=== PATIENT | female | born 1955 | race Caucasian/White ===

== ENCOUNTER 2024-01-23 15:42 | Emergency (ER) | payer BC, MEDICARE, SELFPAY ==
[2024-01-23 15:47] VITALS: BP 172/96; PULSE 71; RESP 16; TEMP 36.6; O2SAT 98
--- NOTE | 2024-01-23 15:54 | XR_ITS ---
Patient: YOHANA LUNDBERG Facility:?[facility] Patient ID:?[id number] Site Patient ID:?[id number]. Site :?[id number] Study:?XRay-Extremity Right FOOT-01/23/2024 4:21:29 PM Ordering Physician:?DR. WALSH Final Report: INDICATION: Trauma. TECHNIQUE: Right foot radiographs, 3 views. COMPARISON: None. FINDINGS: No acute fractures or dislocation. The joint spaces are preserved. No significant joint effusion. The Lisfranc joint appears unremarkable. Mild diffuse soft tissue edema, nonspecific. The calcaneus is unremarkable. No radiopaque foreign bodies. IMPRESSION: No acute fractures or dislocation. Dictated by Alan Cam MD @ 01/23/2024 4:59:53 PM Signed by:?Alan Cam MD @01/23/2024 4:59:53 PM (Electronic Signature)
--- NOTE | 2024-01-23 16:10 | ED.LOWEXIN ---
HPI - Extremity Injury (Lower) General Date Seen: 01/23/24 Chief Complaint: Extremity Pain/Injury, Lower Stated Complaint: Right foot pain Time Seen by Provider: 01/23/24 15:48 Source: patient Mode of arrival: ambulatory Limitations: no limitations History of Present Illness HPI Narrative: Patient is a 68-year-old female presenting to the emergency department for right foot pain. She states prior to arrival she is seen on a toilet when she still up and suddenly felt pain in the lateral mid right midfoot. Denies ever hurting this foot in the past. No previous pain in this area she states. Is unsure what she did. It does hurt when she pushes on the lateral midfoot. Has some pain when she moves her toes and notices the pain will radiate up behind her right lateral malleolus. No other injuries noted. Denies numbness or weakness. Related Data Allergies Allergy/AdvReac Type Severity Reaction Status Date / Time doxycycline AdvReac Severe Anaphylaxis Verified 01/23/24 15:51 venlafaxine [From Effexor] AdvReac Severe Depression Verified 01/23/24 15:51 Review of Systems Narrative: Review of systems negative unless stated in HPI PFSH PFSH Social History Second hand tobacco smoke exposure: No How often do you have a drink containing alcohol: never AUDIT-C Alcohol total score: 0 Non-prescribed substance use: denies use Exam Narrative: Exam Narrative: Const: Well-nourished, Well-developed, in no distress Eyes: PERRL, no conjunctival injection, and symmetrical lids HENT: Atraumatic external nose and ears. Moist mucous membranes. Removed MSK:Extremities w/o deformity, Normal Active ROM, tenderness to lateral mid foot on the dorsal region. No tenderness on plantar foot Skin: Warm, Dry. No rashes or lesions. Neuro: Normal Muscle tone, No focal neurological deficits. Psych: Awake, Alert, & Oriented x3. Appropriate mood and affect. Const: Vital Signs, click to edit/add: Vital Signs - 24 hr 01/23/24 15:47 Temperature 97.8 F Pulse Rate [Right Pulse Oximeter] 71 Respiratory Rate 16 Blood Pressure [Ri ght Upper Arm] 172/96 H Pulse Oximetry 98 Oxygen Delivery Me thod Room Air Course Vital Signs Vital signs: Initial Vital Signs Temperature 97.8 F 01/23/24 15:47 Temperature Source Temporal Artery Scan 01/23/24 15:47 Pulse Rate 71 01/23/24 15:47 Pulse Rhythm Regular 01/23/24 15:47 Pulse Strength 3+ Normal 01/23/24 15:47 Respiratory Rate 16 01/23/24 15:47 Blood Pressure 172/96 H 01/23/24 15:47 Blood Pressure Mean 121 H 01/23/24 15:47 Blood Pressure Position Sitting 01/23/24 15:47 Pulse Oximetry 98 01/23/24 15:47 Oxygen Delivery Method Room Air 01/23/24 15:47 Vital Signs Temperature 97.8 F 01/23/24 15:47 Pulse Rate 71 01/23/24 15:47 Respiratory Rate 16 01/23/24 15:47 Blood Pressure 172/96 H 01/23/24 15:47 Pulse Oximetry 98 01/23/24 15:47 Oxygen Delivery Method Room Air 01/23/24 15:47 Temperature 97.8 F 01/23/24 15:47 Pulse Rate 71 01/23/24 15:47 Respiratory Rate 16 01/23/24 15:47 Blood Pressure 172/96 H 01/23/24 15:47 Pulse Oximetry 98 01/23/24 15:47 Oxygen Delivery Method Room Air 01/23/24 15:47 MDM - Extremity Injury (Lower) MDM Narrative Medical decision making narrative: Patient is a 68-year-old female presenting for right foot pain. She was able ambulate into the emergency department. We will do x-rays of the right foot to look for signs of fracture. X-rays reviewed by myself and the radiologist showed no acute fractures. She is neurovascular intact. This is most likely a foot strain and she can be discharged home. She is agreeable to this plan. Imaging Data X-ray right foot: Radiologist's impression: No acute fractures or dislocation. Dictated by Alan Cam MD @ 01/23/2024 4:59:53 PM Discharge Plan Discharge Clinical Impression: Muscle strain of foot Qualifiers: Encounter type: initial encounter Laterality: right Qualified Code(s): S96.911A - Strain of unspecified muscle and tendon at ankle and foot level, right foot, initial encounter Patient Disposition: Home, Self-Care Condition: Stable Instructions: Arthralgia (ED) Additional Instructions: Take Tylenol and ibuprofen for pain. Weight bear as tolerated. Return to emergency department for new or worsening symptoms Follow Up/Referrals: Gillian Nam PA-C [Primary Care Provider] - Stand Alone Forms: [employer] Info Instructions
== END 2024-01-23 17:42 | disposition home or self-care (01) ==
PROVIDERS: Emergency Provider Student in an Organized Health Care Education/Training Program; PCP Physician Assistant
DX: S96.911A Strain of unspecified muscle and tendon at ankle and foot level, right foot, initial encounter (principal)
CPT/HCPCS: 73630; 99282; 99283

== ENCOUNTER 2024-11-26 10:19 | Emergency (ER) | payer BC, SELFPAY ==
[2024-11-26 10:28] VITALS: BP 183/95; PULSE 82; RESP 18; TEMP 36.8; O2SAT 96; BMI 29.5
[2024-11-26 10:34] VITALS: BP 153/86; PULSE 80; O2SAT 93
[2024-11-26 10:35] VITALS: PULSE 78; O2SAT 93
[2024-11-26 10:45] VITALS: PULSE 74; O2SAT 95
--- NOTE | 2024-11-26 11:33 | ED.GENADULT ---
HPI - General Adult General Chief complaint: Dizziness/Vertigo Stated complaint: dizziness Time Seen by Provider: 11/26/24 11:07 History of Present Illness HPI narrative: This 69-year-old female comes in because of a near syncopal event that occurred prior to arrival. She states that she was sitting at work and began to feel lightheaded. She did not have loss of consciousness. She did not laid down and her symptoms continued for perhaps a half an hour. Ambulance arrived and noted that her heart rate and blood pressure were elevated at that time. The patient is not on any antihypertensive medications. Her blood glucose was checked at 158. She is taking metformin for pre diabetes. She is not on any medicines that will make her blood glucose go too low. She states that she had breakfast this morning. She did not note any palpitations or chest pain. She noted that her heart seemed to be going faster after she felt lightheaded. Related Data Home Medications ?Medication ?Instructions ?Recorded ?Confirmed atorvastatin 10 mg tablet 10 mg PO QPM 11/26/24 11/26/24 metformin 500 mg tablet,extended 1,000 mg PO QPM 11/26/24 11/26/24 release 24 hr Allergies Allergy/AdvReac Type Severity Reaction Status Date / Time doxycycline AdvReac Severe Anaphylaxis Verified 01/23/24 15:51 venlafaxine (From Effexor) AdvReac Severe Depression Verified 01/23/24 15:51 Review of Systems Status of ROS: Reports: 10 or more systems reviewed and unremarkable except as noted in History and below Narrative: Constitutional: No fevers, no weight gain or loss. Eyes: No discharge. No vision changes. HENT: No congestion, no sore throat, no ear pain. Cardiovascular: No chest pain, no palpitations. Respiratory: No shortness of breath, no wheezes, no cough. Gastrointestinal: No abdominal pain, no vomiting, no diarrhea. Genitourinary: No dysuria, no hematuria. Musculoskeletal: Normal range of motion. Skin: No rashes, no pruritis. Neurological: No weakness, sensory change, speech change. Lightheadedness as described above. Endo/Heme/Allergies: No bruising or bleeding. No polydipsia. Pysch: no suicidality, no anxiety, no insomnia. All other systems reviewed and are negative. PFSH PFSH Social History Second hand tobacco smoke exposure: No How often do you have a drink containing alcohol: never AUDIT-C Alcohol total score: 0 Non-prescribed substance use: denies use Exam Narrative: Exam Narrative: Constitutional: Well-developed, well-nourished, no acute distress. HEENT: Normocephalic, atraumatic. Neck: Normal range of motion. Nontender. Supple. Heart: Regular. No murmurs. Normal rate. Intact distal pulses. Lungs: Clear to auscultation. No chest discomfort. No wheezes, rhonchi, or rales. Abdomen: Normal bowel sounds. Nontender. No rebound tenderness. Genitalia: Deferred. Back: No midline tenderness. Normal range of motion. Extremities: Normal range of motion. No injury. Skin: Intact. No rash. Warm. No erythema or pallor. Neurologic: No altered sensation. No weakness. Alert and oriented. No facial asymmetry. Tongue is midline. [id number] is normal. No pronator drift. [employer] strength is equal bilaterally. Able to raise each leg from the bed. Psychiatric: No suicidality. No anxiety or depression. No insomnia. Nursing notes and vitals signs are reviewed. Const: Vital Signs, click to edit/add: Vital Signs - 24 hr 11/26/24 10:28 11/26/24 10:34 11/26/24 10:35 Temperature 98.2 F Pulse Rate 80 78 Pulse Rate [Pulse Oximeter] 82 Respiratory Rate 18 Blood Pressure 153/86 H Blood Pressure [Ri ght Upper Arm] 183/95 H Pulse Oximetry 96 93 93 Oxygen Delivery Me thod Room Air 11/26/24 10:45 Temperature Pulse Rate 74 Pulse Rate [Pulse Oximeter] Respiratory Rate Blood Pressure Blood Pressure [Ri ght Upper Arm] Pulse Oximetry 95 Oxygen Delivery Me thod Course Vital Signs Vital signs: Initial Vital Signs Temperature 98.2 F 11/26/24 10:28 Temperature Source Temporal Artery Scan 11/26/24 10:28 Pulse Rate 82 11/26/24 10:28 Pulse Rhythm Regular 11/26/24 10:28 Respiratory Rate 18 11/26/24 10:28 Blood Pressure 183/95 H 11/26/24 10:28 Blood Pressure Mean 124 H 11/26/24 10:28 Pulse Oximetry 96 11/26/24 10:28 Oxygen Delivery Method Room Air 11/26/24 10:28 Vital Signs Temperature 98.2 F 11/26/24 10:28 Pulse Rate 82 11/26/24 10:28 Respiratory Rate 18 11/26/24 10:28 Blood Pressure 183/95 H 11/26/24 10:28 Pulse Oximetry 96 11/26/24 10:28 Oxygen Delivery Method Room Air 11/26/24 10:28 Temperature 98.2 F 11/26/24 10:28 Pulse Rate 74 11/26/24 10:45 Respiratory Rate 18 11/26/24 10:28 Blood Pressure 153/86 H 11/26/24 10:34 Pulse Oximetry 95 11/26/24 10:45 Oxygen Delivery Method Room Air 11/26/24 10:28 Medical Decision Making MDM Narrative Medical decision making narrative: This patient describes a lightheadedness episode that occurred prior to arrival here. Upon arrival here her symptoms have completely resolved. She was able to get up to the bathroom without any incident. Her vital signs are reassuring. An EKG was obtained and shows normal sinus rhythm without any ST or T-wave abnormalities. Additionally her labs are returning with normal findings. Her troponin returns at 0. These are reassuring results for the patient. I did describe various circumstances that can contribute toward decreased supply of a glucose an oxygen to the brain cells causing lightheadedness. If symptoms are persistent or recurring the patient is instructed to follow-up here and may need further studies. Lab Data Labs: Lab Results 11/26/24 11/26/24 Range/Units 11:33 11:52 WBC 6.64 (4.50-11.00) K/uL RBC 5.08 (4.00-5.20) m/uL Hgb 16.2 H (12.0-16.0) gm/dL Hct 46.6 (33.0-51.0) % MCV 92 (80-100) fL MCH 32 (26-34) pg MCHC 35 (32-36) gm/dL RDW Coeff of Tomas 11.7 (11.5-15.5) % Plt Count 208 (140-440) K/uL Neut % (Auto) 67.4 (42.0-72.0) % Lymph % (Auto) 22.4 (20-44) % [place] % (Auto) 8.4 (0.0-11.0) % Eos % (Auto) 1.2 (0.0-7.0) % Baso % (Auto) 0.6 (0.0-3.0) % Neut # (Auto) 4.47 (1.7-7.0) K/uL Lymph # (Auto) 1.49 (0.90-2.90) K/uL [place] # (Auto) 0.60 (0.00-0.90) K/UL Eos # (Auto) 0.08 (0.00-0.50) K/uL Baso # (Auto) 0.04 (0.00-0.30) K/uL Abs Immat Gran (auto) 0.00 (0.00-0.30) K/uL Imm/Tot Granulo (auto) 0.0 % Sodium 140 (135-149) mmol/L Potassium 3.8 (3.6-5.1) mmol/L Chloride 108 (96-114) mmol/L Carbon Dioxide 23 (20-32) mmol/L Anion Gap 9 (7-15) mEq/L BUN 11 (7-30) mg/dL Creatinine 0.6 (0.5-1.5) mg/dL Estimated Creat Clear 45.20 Estimated GFR 97 ml/min Glucose 101 (60-115) mg/dL Calcium 9.6 (8.4-10.6) mg/dL POC Troponin I 0.00 L (0.01-0.04) ng/ml ECG Data Attestation: I personally reviewed and interpreted this ECG as follows: Interpretation: Normal sinus rhythm. Rate is 74 beats per minute. There are no ST or T-wave abnormalities. Discharge Plan Discharge Clinical Impression: Episodic lightheadedness Patient Disposition: Home w/ Parent or Adult Condition: Improved Additional Instructions: Continue current plans. Use [id number] medicines as needed and directed. Follow up with MD or return if symptoms are recurrent or worsening. Prescriptions: No Action atorvastatin 10 mg tablet 10 mg PO QPM metformin 500 mg tablet extended release 24 hr 1,000 mg PO QPM Follow Up/Referrals: Gillian Nam PA-C [Primary Care Provider] - Stand Alone Forms: [employer] Info Instructions
[2024-11-26 12:03] LABS: Basophils Absolute Auto 0.04 K/uL (0.00-0.30); Basophils Percent Auto 0.6 % (0.0-3.0); Eosinophils Absolute Auto 0.08 K/uL (0.00-0.50); Eosinophils Percent Auto 1.2 % (0.0-7.0); Hematocrit 46.6 % (33.0-51.0); Hemoglobin* 16.2 gm/dL (12.0-16.0); Lymphocytes Absolute Auto 1.49 K/uL (0.90-2.90); Lymphocytes Percent Auto 22.4 % (20-44); Mean Corpuscular HGB Conc 35 gm/dL (32-36); Mean Corpuscular Hemoglobin 32 pg (26-34); Mean Corpuscular Volume 92 fL (80-100); Monocytes Percent Auto 8.4 % (0.0-11.0); Neutrophils Absolute Auto 4.47 K/uL (1.7-7.0); Neutrophils Percent Auto 67.4 % (42.0-72.0); Platelet Count* 208 K/uL (140-440); RDW Coefficient of Variation % 11.7 % (11.5-15.5); Red Blood Count 5.08 m/uL (4.00-5.20); White Blood Count* 6.64 K/uL (4.50-11.00)
[2024-11-26 12:19] LABS: Chloride* 108 mmol/L (96-114); Potassium* 3.8 mmol/L (3.6-5.1); Slide Review Reflex No; Sodium* 140 mmol/L (135-149)
[2024-11-26 12:22] LABS: Anion Gap 9 mEq/L (7-15); Blood Urea Nitrogen* 11 mg/dL (7-30); Calcium* 9.6 mg/dL (8.4-10.6); Carbon Dioxide* 23 mmol/L (20-32); Creatinine* 0.6 mg/dL (0.5-1.5); Estimated Glomerular Filt Rate 97 ml/min; Glucose* 101 mg/dL (60-115)
--- OUTSIDE RECORDS SUMMARY | 2024-11-26 15:30 | XMS_ITS | Continuity of Care Document ---
Author Organization [facility] Address [address] [place] [address] Phone Care Team Providers Care Beverage Steward Name Role Phone Arian García MD Unavailable Unavailable Procedures Procedure Date Office Consultation, [facility] Office/Outpatient Visit,[facility] 2022 Advance Directives Directive Yes / No Effective Date File Name No Information Encounters Encounter Description Practice Location Reason(s) For Visit Diagnoses Date Provider Providers Copied on Encounter Office Consultation, Moderate [facility] , [address], [place], [place], [id number], [place] tel:[phone] [facility] [place] Spinal stenosis, cervical regionOther spondylosis, cervical region Ricky Don. [facility] [place], [address] [place] [address], [facility] [address], [place], [place], [id number], [place]. tel:[phone] Referring Provider: Gillian Nam, [facility] [address], [address]. tel:[phone] Family History Family Member Type Diagnosis Age At Onset Sister Problem (finding) Diabetes mellitus Sister Problem (finding) Cancer, unknown type Brother Problem (finding) Diabetes mellitus Payers Payer name Insurance type Covered republican ID Authorgeorgina grewal(s) [facility] [id number] [facility] [id number] Social History Type Description Quantity Date Captured Comments Alcohol Use Details Caffeine Use Details Unknown Tobacco Use Status No Information Smoking Status Never smoker Non-Smoking Tobacco Use Details : No Details Available : No Details Available Sex Female Vital Signs Date / Time: Height Weight BMI Pulse Rate Blood Pressure Temperature Respiratory Rate Body Surface Area Head Circumference Head Circ. Percentile Wt./Sy. Percentile BMI percentile Pulse Ox Inhaled Ox 1:04 PM 63.50 in 80.739 kg (178.00 lbs) 31.0 4 kg/m eter (2) Chief Complaint And Reason For Visit No Information Reason For Referral Reason For Referral No Information History Of Present Illness Encounter Date Complaint History Of Prese nt Illness No Information Functional Status Date Functional Assessmen t No Information Instructions Date Instruction Additional Infor mation No Information Assessments Type Assessment Date No Information Patient Care Teams Name Effective Dates (start - stop) Status Members No Information
--- OUTSIDE RECORDS SUMMARY | 2024-11-26 15:31 | XMS_ITS | Clinical Summary ---
Author Organization [employer] [facility] Address [place], [place] [address] Care Team Providers Care Communication Center Coordinator Name Role Phone Glilian Nam Primary Care Provider [phone] Allergies Active Allergy Reactions Criticality Noted Date Comments Doxycycline Erythema 01/03/2022 Venlafaxine Analogues Nausea Only Low 03/17/2011 Arms and legs heavy Medications LORazepam (ATIVAN) 0.5 mg tabIndications:Anxi ety Take 1 Tablet (0.5 mg) by mouth every 6 hours if needed for Anxiety. 20 tablet. 1 1 Active gabapentin (NEURONTIN) 100 mg capsuleIndications: Chronic intractable headache, unspecified headache type Take 1-3 Capsules (100-300 mg) by mouth at bedtime. 270 Capsule 3 3 Active cyclobenzaprine (FLEXERIL) 10 mg tabletIndications:A cute bilateral low back pain without sciatica Take 1 Tablet (10 mg) by mouth 3 times daily if needed for Muscle Spasm. 60 Tablet 1 3 Active omeprazole 20 mg tabletIndications:C hronic GERD Take 1 Tablet (20 mg) by mouth once daily before a meal. 90 Tablet 3 3 Active metFORMIN (GLUCOPHAGE XR) 500 mg Extended-Release tabletIndications:M etabolic syndrome Take 2 Tablets (1,000 mg) by mouth once daily with evening meal. 180 Tablet 3 3 Active atorvastatin (LIPITOR) 10 mg tabletIndications:M ixed hyperlipidemia TAKE ONE TABLET BY MOUTH AT BEDTIME 90 Tablet 4 Active Active Problems Problem Noted Date Diagnosed Date Depression, recurrent 08/11/2023 DDD (degenerative disc disease), cervical 2022 Prediabetes 06/29/2022 Primary osteoarthritis of both hands 06/29/2022 Mixed hyperlipidemia 06/29/2022 Vertigo 01/08/2022 Venous insufficiency 05/13/2021 Atrial septal aneurysm 03/20/2016 Insomnia 02/23/2015 Reflux esophagitis 11/28/2013 Overview (03/11/2014): Mild, per upper endoscopy Pure hypercholesterolemia 01/07/2007 Symptomatic menopausal or female climacteric sta valdemar Osteopenia Resolved Problems Problem Noted Date Diagnosed Date Resolved Date COVID-19 virus infection 10/15/2021 Acute aspiration pneumonia 10/15/2021 0 01/08/2022 Gastritis 03/11/2014 01/08/2022 Overview (03/11/2014): 11/28/13 upper endoscopy: mild antritis Lumbago 01/11/2009 Encounter for screening colonoscopy 01/08/2022 Encounters Date Type Department Care Team Description 09/18/2024 Refill [facility] [address] [place] [address] Gillian Nam PA Refill Request (Atorvastatin) from Last 3 Months Immunizations Name Administration Dates Next Due COVID-19 vaccine (Moderna 100mcg/0.5mL) PF, MDV 02/03/2022,01/02/2022 COVID-19 vaccine (Pfizer-Bio NTech 30mcg/0.3mL) 12YO+ BIVALENT PF, MDV 08/11/2022 DTaP 01/11/2009 Influenza, High-dose Quadrivalent Inactivated Influenza, Inactivated AIIV4 (Age 65+ Years) Preserv Free 09/07/2023 Pneumococcal conj 13-Valent (Prevnar 13) 019 Td (Age >=7 Years) 02/19/2019,01/23/1983 Tdap 08/15/2009,01/11/2009 Zoster (Zostavax-ZVL, live) 11/13/2014 Family History Medical History Relation Name Comments Heart Disease Father [place] Hypertension Mother CHF Diabetes Sister 2 #1 Hodgkin's disas e Cancer-breast Sister 3 #2 Other Sister 4 #3 lupus Heart Disease Sister 5 Relation Name Status Comments Father (Age 58) of [place] Mother (Age 87) Sister 1 (Age 72) MDS Sister 2 #1 Sister 3 #2 Sister 4 #3 Sister 5 Social History Tobacco Use Types Packs/Day Years Used Date Smoking Tobacco: Never Smokeless Tobacco: Never Tobacco Cessation:Counseling Given: Yes Comments:never Alcohol Use Standard Drinks/Week Comments Yes 0 (1 standard drink = 0.6 oz pur e alcohol) wine occasionally PHQ-2 Answer Date Recorded PHQ-2 TOTAL SCORE 2 08/09/2023 Social Connections Answer Date Recorded Do you often feel lonely or isolated from those around you? 0 09/07/2023 Financial Resource Strain Answer Date R ecorded Difficulty of Paying Living Expenses 3 09/07/2023 Difficulty of Paying Living Expenses Not on file 09/07/2023 Food Insecurity Answer Date Recorded Do you worry your food will run out before you are able to buy more? 1 09/07/2023 Transportation Needs Answer Date Record ed Does lack of transportation keep you from medica l appointments? 1 09/07/2023 Does lack of transportation keep you from work, meetings or getting things that you need? 1 09/07/2023 Housing Stability Answer Date Recorded What is your housing situation today? 1 09/07/2023 Comments No Sex and Gender Information Value Date Recorded Sex Assigned at Not on file Legal Sex Female 5:24 AM EMT Gender Identity Not on file Sexual Orientation Not on file Occupation Industry Job Start Date Job End Date Not on file Not on file Not on file Not on file Obstetrics History Para Term AB IAB SAB Ectopic Multiple Livin g Live Births 3 3 Date Outcome GA Total Labor Labor/2nd/3rd Weight Sex Type Anes PTL Fannie A1 A5 Name Clin Para Para Para Last Filed Vital Signs Vital Sign Reading Time Taken Comments Blood Pressure 148/70 06/14/2024 3:47 PM CDT Pulse 64 06/14/2024 3:47 PM CDT Temperature 36.4 C (97.5 F) 06/14/2024 3:47 PM CDT Respiratory Rate 16 06/14/2024 3:47 PM CDT Oxygen Saturation 97% 06/14/2024 3:47 PM CDT Inhaled Oxygen Concentration - - Weight 80.7 kg (178 lb) 06/14/2024 3:47 PM CDT Height 160.7 cm (5' 3.27) 08/09/2023 1:52 PM CD T Body Mass Index 31.26 08/09/2023 1:52 PM CDT Plan of Treatment Health Maintenance Due Date Last Done Comments RSV vaccine for adults or (1 - Risk 60-74 years 1-dose series) 2014 Zoster (shingles) series for age 50+ (2 of 3) 01/08/2015 11/13/2014 Pneumococcal series for age 50+ (2 of 2 - PPSV23) 04/16/2019 02/19/2019 COVID-19 vaccine series (4 - 2023- season) 2024 08/11/2022, 02/03/2022, 01/02/2022 Influenza for age 65+ 06/29/2024 09/07/2023, 022 Mammogram for age 45-75 07/04/2024 07/04/20, 06/20/2022, 05/11/2021, Additional history exists BMI (ht and wt on same day) for age 18+ 08/09/2024 08/09/2023, 08/23/2022, 06/27/2022, Additional history exists Depression screening for age 12+ 08/09/2024 08/09/2023, 06/27/2022, 06/27/2022, Additional history exists Lipids for age 45-75 08/09/2028 08/09/2023, 06/27/2022, 05/12/2021, Additional history exists Tetanus booster 02/19/2029 02/19/2019, 07/29, 01/11/2009, Additional history exists Colonoscopy through age 75 06/01/203106/01, 04/12/2009, 04/12/2009 Tdap Completed 08/15/2009, 01/11/2009 Hepatitis C screening for ag e 18-79 Completed 02/19/2019 DEXA/DXA scan for age 65+ Completed 2020, 02/24/2019, 11/20/2011, Additional history exists Procedures Procedure Name Priority Date/Time Associated Diagnosis Comments LIPID PANEL W REFLEX MEASURED LDL Routine 08/09/2023 2:55 PM CDT Mixed hyperlipidemia XR MAMMO BRAXTON BILAT SCREEN Routine 07/04/2023 11:50 AM CDT Encounter for other screening for malignant neoplasm of breast COLONOSCOPY 06/01/2021 9:45 AM CDT XR DXA BONE DENSITY 2 SITES AXIAL Routine 05/10/2021 1:18 PM CDT Osteopenia, unspecified location ANTI HCV Routine 02/19/2019 4:32 PM CDT Need for hepatitis C screening test from Last 3 Months or Most Recently Relevant to Health Maintenance Results * (ABNORMAL) LIPID PANEL W REFLEX MEASURED LDL (08/09/2023 2:55 PM CDT) CHOLESTEROL,TOTAL 203(H) 100 - 199 mg/dL 08/10/2023 1:21 AM CDT [facility] Comment: Cholesterol, Total Reference Ranges Desirable <200 mg/dL Borderline 200-239 mg/dL High >=240 mg/dL TRIGLYCERIDES 180(H) <150 mg/dL 08/10/2023 1:21 AM CDT [facility] HDL CHOLESTEROL 44 >40 mg/dL 1:21 AM CDT [facility] NON-HDL CHOLESTEROL 159(H) <145 mg/dl 08/10/2023 1:21 AM CDT [facility] CHOL/HDL RATIO 4.61(H) <4.50 08/10/2023 1:21 AM CDT [facility] LDL CHOLESTEROL 123 <=130 mg/dL 08/10/2023 1:21 AM CD[address] [email or web address] VLDL CHOLESTEROL 36(H) <=30 mg/dL 08/10/2023 1:21 AM CDT [facility] PROVIDER ORDERED STATUS RANDOM 08/10/2023 1:21 AM CDT [facility] Blood BLOOD SPECIMEN / Unknown Butterfly / Unknown 08/09/2023 2:55 PM CDT 08/09/2023 2:58 PM CDT [facility] Final Resu lt [facility] [address] [place] [address], [place] * XR MAMMO BRAXTON BILAT SCREEN (07/04/2023 11:50 AM CDT) Anatomical Region Laterality Modality BREASTS, Breast Left, Breast Right Bilateral Mammography Impressions 07/04/2023 12:16 PM CDT There is no radiographic evidence for malignancy. Recommend annual mammograms. MAMMOGRAM ASSESSMENT: ACR 1 Negative PATIENTS: You will also receive a letter with your examination results in an easy to read format. If you have questions about your results, please contact your referring provider. Narrative 07/04/2023 12:16 PM CDT For Patients: As a result of the Century Cures Act, medical imaging exams and procedure reports are released immediately into your electronic medical record. You may view this report before your referring provider. If you have questions, please contact your health care provider. XR MAMMO BRAXTON BILAT SCREEN [[id number]] CLINICAL HISTORY: This is an asymptomatic 68 y.o. patient. INDICATION FOR EXAM: Mammogram Screening. TECHNIQUE: CC & MLO views were obtained. This study was evaluated with the assistance of Computer-Aided Detection. Breast Tomosynthesis was used in interpretation. COMPARISON FILM: Yes 06/20/22 [facility] FINDINGS: The breasts are almost entirely fatty. There are no dominant masses, suspicious micro calcifications or areas of architectural distortion. [facility] [place] [facility] Final Resu lt * COLONOSCOPY (06/01/2021 9:45 AM CDT) 06/01/2021 9:45 AM CDT Narrative Transcriptions Frankie Morales MD - 06/01/2021 10:28 AM CDT Patient Name: Michelle Justice Procedure Date: 06/01/2021 Gender: Female Date of : 1955 Admit Type: Ambulatory Procedure: Colonoscopy Proceduralist: Frankie Anthony [facility] Indications/Pre-Op Diagnosis: Screening for colorectal malignantneoplasm Medications: Sedation Administered by an Endoscopy Nurse, Midazolam 6 mg IV, Fentanyl 100 microgramsIV, Atropine 0.4 mg IV Procedure Description: The patient had risks, benefits and alternatives explained to andgave informed consent. The patient had a stable cardiopulmonary status and judged an adequate candidate for conscious sedation. The colonoscope was passed through the anus and advanced to 2 cm into the ileum. The colonoscopy was performed without difficulty. Thepatient tolerated the procedure well. The quality of the bowel preparationwas good. The terminal ileum, ileocecal valve, appendiceal orifice, and rectum were photographed. Complications: No immediate complications. Estimated Blood Loss & Specimen: Estimated blood loss: none. Specimen collected - None Findings: The perianal and digital rectal examinations were normal. The colon (entire examined portion) appeared normal. Retroflexion in the right colon was performed. The terminal ileum appeared normal. The retroflexed view of the distal rectum and anal verge was normaland showed no anal or rectal abnormalities. Impressions/Post-Op Diagnosis: - The entire examined colon is normal. - The examined portion of the ileum was normal. - No specimens collected. Recommendation: - Discharge patient to home. - Resume previous diet. - Continue present medications. - Repeat colonoscopy in 10 years for surveillance. Moderate Sedation: Moderate (conscious) sedation was administered by the endoscopy nurse and supervised by the endoscopist. The patient's oxygen saturation, heart rate, blood pressure and response to care were monitored. Total physician intraservice time was 25 minutes. Frankie Morales, 06/01/2021 10:26:44 AM This report has been signed electronically. Note Initiated On: 06/01/2021 9:45 AM us Frankie Morales MD PROCEDURE ORD Edited Re sult - Final * (ABNORMAL) XR DXA BONE DENSITY 2 SITES AXIAL (05/10/2021 1:18 PM CDT) Anatomical Region Laterality Modality Spine, HIPS, HIPL, HIPR Computed Radiography Impressions 05/10/2021 1:39 PM CDT Osteopenia. Bone density has not changed significantly since 2019. Fracture risk is not elevated. RECOMMENDATIONS: The National Osteoporosis Foundation recommends pharmacologic treatment for patients with T-scores of -2.5 or less, patients with prior history of fragility fractures, or patients with 10-year probability of greater than 3% at hips or greater than 20% of suffering major osteoporotic fractures. Recommend continued optimization of calcium and vitamin D intake through dietary means and/or supplementation and regular exercise. Repeat scan recommended in 3-5 years. Narrative 05/10/2021 1:39 PM CDT XR DXA Bone Mineral Density (BMD) EXAM LOCATION: [address] [id number] PATIENT NAME: Michelle Justice DATE OF : 1955 EXAM DATE: 05/10/2021 REQUESTING PROVIDER: Gillian Nam PA GENDER AT : female HEIGHT: 5' 4 (05/10/2021) WEIGHT: 174 lb 14.4 oz (05/10/2021) MENOPAUSAL STATUS: Postmenopausal RACE/ETHNICITY: White RISK FACTORS: Family History of Osteoporosis CURRENT MEDICATION FOR BONE LOSS: NONE INDICATION: Follow-up of existing osteopenia COMPARISON DATE(S): 2018 DXA scans are compared to prior studies for a patient only when the two (or more) studies were performed on the same scanner. It is not possible to compare data generated on one scanner to data from another because there are not standards in DXA equipment. This applies even if the two scanners are made by the same financial services technician. PROCEDURE: Dual-energy x-ray absorptiometry performed with routine technique. Reporting is completed in the form of a T-score. The T-score represents the standard deviation from peak bone mass based on young healthy adult. A Z-score is used for diagnosis in premenopausal women, and for men under the age of 50. FINDINGS: RESULT LUMBAR SPINE L1 - L4 BMD: 0.906 g/cm2 T-Score: - 2.2 Comparison to most recent scan in 2019: Decrease 2.7%. RESULT FEMORAL NECK Bilateral Total Femoral Neck BMD: 0.757 g/cm2 T-Score: - 2.0 Comparison to most recent scan in 2019: Increase 0.9%. RESULT TOTAL HIP Bilateral Total Hip BMD: 0.856 g/cm2 T-Score: - 1.2 Comparison to most recent scan in 2019: no change. WHO criteria: Normal: T-score at or above -1 SD Osteopenia: T-score between -1.1 and -2.4 SD Osteoporosis: T-score at or below -2.5 SD FRAX RISK CALCULATION (USED FOR OSTEOPENIA ONLY): 10-year probability of major osteoporotic fracture: 11.6%. 10-year probability of hip fracture: 2.0%. [place] [place] DEXA Final Resu lt * ANTI HCV [[id number]] (02/19/2019 4:32 PM CDT) HEPATITIS C ANTIBODY Non-React jennifer Non-React jennifer 02/19/2019 11:35 PM CDT [facility] Comment:Antibodies to HCV no t detected; does not exclude the possibility of exposure to HCV. Blood BLOOD SPECIMEN / Unknown Venipuncture / Unknown 02/19/2019 4:32 PM CDT 02/19/2019 4:32 PM CDT Alannah Wells MD SEND OUTS Final Res ult [facility] [address] [place] [address], from Last 3 Months or Most Recently Relevant to Health Maintenance Insurance [phone] (Work) [id number] MEDICARE PART A HB ONLY Advance Directives * Full Code (Latest Code Status on File) Date Activated Date Inactivated Comments 06/01/2021 9:07 AM 06/01/2021 1:30 PM Question Answer Comments Code Status Discussion: Per Existing Order Care Teams Communication Center Coordinator Relationship Specialty Start Date End Date Gillian Nam PA [address] [place] [address] PCP - General Physician Clinical Trial Coordinator 05/24/21
--- OUTSIDE RECORDS SUMMARY | 2024-11-26 15:49 | XMS_ITS | Continuity of Care Document ---
Author Organization [facility] Address [address] [place] [address] Phone Care Team Providers Care Insurance Coordinator Name Role Phone Arian García MD Unavailable Unavailable Procedures Procedure Date Office Consultation, [facility] Office/Outpatient Visit,[facility] 2022 Advance Directives Directive Yes / No Effective Date File Name No Information Encounters Encounter Description Practice Location Reason(s) For Visit Diagnoses Date Provider Providers Copied on Encounter Office Consultation, Moderate [facility] , [address], [place], [place], [id number], [place] tel:[phone] [facility] - [place] Spinal stenosis, cervical regionOther spondylosis, cervical region Ricky Don. [facility] [place], [address] [place] [address], [facility] [address], [place], [place], [id number], [place]. tel:[phone] Referring Provider: Gillian Nam, [employer] [address], [address]. tel:[phone] Family History Family Member Type Diagnosis Age At Onset Sister Problem (finding) Diabetes mellitus Sister Problem (finding) Cancer, unknown type Brother Problem (finding) Diabetes mellitus Payers Payer name Insurance type Covered constitution party ID Authorgeorgina grewal(s) [facility] [id number] [facility] [id number] Social History Type Description Quantity Date Captured [...]
== END 2024-11-26 12:40 | disposition home or self-care (01) ==
PROVIDERS: Emergency Provider Emergency Medicine Emergency Medical Services; PCP Physician Assistant
DX: R42 Dizziness and giddiness (principal)
CPT/HCPCS: 36415; 80048; 84484; 85025; 93005; 99284